=== PATIENT | female | born 1965 | race Caucasian/White ===

== ENCOUNTER 2020-05-29 05:59 | Inpatient (IN) ==
[2020-05-29] MEDS ORDERED: DEXTROSE 50% 25 GM/50 ML VIAL IV PRN (09:37)
[2020-05-29] MEDS ORDERED: GLUCAGON 1 MG VIAL IM PRN (09:37)
[2020-05-29] MEDS ORDERED: ONDANSETRON 4 MG/2 ML VIAL IV PRN (09:37)
[2020-05-29 10:44] LABS: Basophils % 0.2 % (0.0-0.8); Eosinophils % 0.2 % (0.00-10.9); Hematocrit 37.1 VOL% (35.7-47.0); Immature Granulocytes % 0.6 %; Lymphocytes # 1.6 10*3/uL (1.4-4.0); Mean Corpuscular HGB Conc 32.3 GM/DL (32-36); Mean Corpuscular Volume 85.9 FL (87-102); Mean Platelet Volume 9.7 FL (9.6-12.0); Monocytes % 5.6 % (1.7-12.7); Neutrophils % 83.4 % (38.7-73.9); Platelet Count 333 T/CUMM (130-400); Red Blood Count 4.32 MC/CUMM (3.8-5.5); Red Cell Distribution Width 14.6 % (9.3-17.3); White Blood Count 16.4 T/CUMM (4-12)
[2020-05-29 11:10] LABS: Alanine Aminotransferase 13 U/L (13-56); Albumin 2.9 G/DL (3.4-5.0); Alkaline Phosphatase 90 U/L (45-117); Aspartate Amino Transferase 7 U/L (0-37); Bilirubin,Total < 0.39 MG/DL (0.2-1.0); Blood Urea Nitrogen 62 MG/DL (7-18); Calcium 9.1 MG/DL (8.5-10.1); Estimated Glom Filtration Rate 29 ML/MIN; Glucose 119 MG/DL (74-106); Osmolality,Calculated 293.7 MOS/KG (273-304); Total Protein 7.2 G/DL (6.4-8.3)
[2020-05-29] MEDS: PANTOPRAZOLE 40 MG VIAL IV SCH (11:31)
[2020-05-29] MEDS: SODIUM CHLORIDE 0.9% 1,000 ML IV SCH ×2 (11:31→19:50)
[2020-05-29] MEDS ORDERED: METOPROLOL SUCCINATE XL 50 MG TABLET PO SCH (14:00)
[2020-05-29] MEDS ORDERED: LEVOTHYROXINE 150 MCG TABLET PO SCH (14:00)
[2020-05-29] MEDS ORDERED: amLODIPine 10 MG TABLET PO SCH (14:00)
[2020-05-29] MEDS: DULoxetine 30 MG CAPSULE PO SCH (14:45)
[2020-05-29] MEDS: LEVOTHYROXINE 200 MCG TABLET PO SCH (14:46)
[2020-05-29] MEDS: amLODIPine 5 MG TABLET PO SCH (14:47)
[2020-05-29] MEDS: GABAPENTIN 300 MG CAPSULE PO SCH ×2 (14:47→21:14)
[2020-05-29] MEDS: metroNIDAZOLE INJ 500 MG in PREMIX 1 EACH IV SCH ×2 (14:47→21:14)
[2020-05-29] MEDS: LEVOFLOXACIN INJ 500 MG in PREMIX 1 EACH IV SCH (16:18)
[2020-05-29 17:38] LABS: Apearance,Urine CLEAR (Clear); Bacteria,Urine Occasional /HPF (Few); Bilirubin,Urine Negative (Negative); Blood, Urine Moderate mg/dL (Negative); Glucose,Urine (UA) Negative (Negative); Ketones,Urine Negative (Negative); Mucus,Urine Occasional /LPF (Occasional); Nitrite,Urine Negative (Negative); Protein,Urine 100 MG/DL; RBC,Urine 4 /HPF (0-4); Squamous Epithelial Cell,Urine Occasional /HPF (0-10); Urine Color Straw (Yellow); Urine Specific Gravity 1.012 (1.001-1.035); Urine Urobilinogen < 2.0 EU/DL (0.2-1.0); WBC,Urine 1 /HPF (0-6)
[2020-05-29 17:39] LABS: Hematocrit 35.3 VOL% (35.7-47.0); Hemoglobin 11.4 GM/DL (12.0-16.0)
[2020-05-29] MEDS: METOPROLOL SUCCINATE XL 25 MG TABLET PO SCH (21:14)
[2020-05-30 01:15] LABS: Hematocrit 36.4 VOL% (35.7-47.0); Hemoglobin 11.6 GM/DL (12.0-16.0)
[2020-05-30] MEDS: metroNIDAZOLE INJ 500 MG in PREMIX 1 EACH IV SCH ×4 (03:14→21:11)
[2020-05-30 05:49] LABS: Basophils % 0.2 % (0.0-0.8); Eosinophils # 0.2 10*3/uL (0.0-0.87); Eosinophils % 1.2 % (0.00-10.9); Hematocrit 37.6 VOL% (35.7-47.0); Hemoglobin 11.9 GM/DL (12.0-16.0); Immature Granulocytes % 0.6 %; Immature Granulocytes Absolute 0.08 #; Lymphocytes # 1.3 10*3/uL (1.4-4.0); Lymphocytes % 10.2 % (21.3-54.2); Mean Corpuscular HGB Conc 31.6 GM/DL (32-36); Mean Corpuscular Volume 87.9 FL (87-102); Mean Platelet Volume 9.7 FL (9.6-12.0); Monocytes % 4.3 % (1.7-12.7); Neutrophils % 83.5 % (38.7-73.9); Platelet Count 300 T/CUMM (130-400); Red Blood Count 4.28 MC/CUMM (3.8-5.5); Red Cell Distribution Width 14.4 % (9.3-17.3); White Blood Count 13.1 T/CUMM (4-12)
[2020-05-30 06:23] LABS: Albumin 2.9 G/DL (3.4-5.0); Bilirubin,Total 0.6 MG/DL (0.2-1.0); Calcium 8.8 MG/DL (8.5-10.1); Osmolality,Calculated 287.7 MOS/KG (273-304); Risk Ratio 4.5; Total Protein 7.1 G/DL (6.4-8.3); VLDL CHOLESTEROL 23.8 MG/DL
[2020-05-30] MEDS: PANTOPRAZOLE 40 MG VIAL IV SCH (08:24)
[2020-05-30] MEDS: DULoxetine 30 MG CAPSULE PO SCH (08:25)
[2020-05-30] MEDS: amLODIPine 5 MG TABLET PO SCH (08:25)
[2020-05-30] MEDS: GABAPENTIN 300 MG CAPSULE PO SCH ×3 (08:25→21:10)
[2020-05-30] MEDS: LEVOTHYROXINE 200 MCG TABLET PO SCH (08:25)
[2020-05-30] MEDS: METOPROLOL SUCCINATE XL 25 MG TABLET PO SCH ×2 (08:26→21:10)
[2020-05-30] MEDS: SODIUM CHLORIDE 0.9% 1,000 ML IV SCH (15:13)
[2020-05-31] MEDS: SODIUM CHLORIDE 0.9% 1,000 ML IV SCH (01:33)
[2020-05-31] MEDS: metroNIDAZOLE INJ 500 MG in PREMIX 1 EACH IV SCH ×2 (02:43→11:41)
[2020-05-31 06:20] LABS: Basophils % 0.3 % (0.0-0.8); Eosinophils # 0.2 10*3/uL (0.0-0.87); Eosinophils % 1.3 % (0.00-10.9); Hematocrit 35.7 VOL% (35.7-47.0); Hemoglobin 11.2 GM/DL (12.0-16.0); Immature Granulocytes % 0.5 %; Immature Granulocytes Absolute 0.06 #; Lymphocytes # 1.8 10*3/uL (1.4-4.0); Lymphocytes % 14.9 % (21.3-54.2); Mean Corpuscular HGB Conc 31.4 GM/DL (32-36); Mean Platelet Volume 9.7 FL (9.6-12.0); Monocytes % 4.8 % (1.7-12.7); Neutrophils % 78.2 % (38.7-73.9); Platelet Count 269 T/CUMM (130-400); Red Blood Count 4.01 MC/CUMM (3.8-5.5); Red Cell Distribution Width 14.3 % (9.3-17.3)
[2020-05-31 06:39] LABS: Albumin 2.7 G/DL (3.4-5.0); Bilirubin,Total 1.1 MG/DL (0.2-1.0); Calcium 8.8 MG/DL (8.5-10.1); Osmolality,Calculated 288.3 MOS/KG (273-304); Total Protein 6.5 G/DL (6.4-8.3)
[2020-05-31] MEDS: LEVOTHYROXINE 200 MCG TABLET PO SCH (07:02)
[2020-05-31] MEDS ORDERED: PANTOPRAZOLE 40 MG TABLET PO SCH (09:00)
[2020-05-31] MEDS ORDERED: propofoL 200 MG/20 ML VIAL IV ONE (09:00)
[2020-05-31] MEDS ORDERED: LIDOCAINE 2% 5 ML VIAL ONE (09:00)
[2020-05-31] MEDS: DULoxetine 30 MG CAPSULE PO SCH (11:41)
[2020-05-31] MEDS: GABAPENTIN 300 MG CAPSULE PO SCH (11:42)
[2020-05-31] MEDS: amLODIPine 5 MG TABLET PO SCH (11:43)
[2020-05-31] MEDS: METOPROLOL SUCCINATE XL 25 MG TABLET PO SCH (11:43)
[2020-05-31] MEDS: LEVOFLOXACIN INJ 500 MG in PREMIX 1 EACH IV SCH (11:44)
[2020-05-31 14:04] VITALS: BP 134/78
== END 2020-05-31 13:40 | disposition home or self-care (01) | DRG 378 ==
LOC: N.5E → SUATTDRO 08:27
PROVIDERS: ADMIT Internal Medicine; ATTEND Internal Medicine

== ENCOUNTER 2021-03-08 19:25 | Observation (INO) ==
[2021-03-08] MEDS ORDERED: ONDANSETRON 4 MG/2 ML VIAL IV STA (20:00)
[2021-03-08 20:39] LABS: Basophils % 0.4 % (0.0-0.8); Eosinophils # 0.3 10*3/uL (0.0-0.87); Eosinophils % 3.5 % (0.00-10.9); Hemoglobin 12.7 GM/DL (12.0-16.0); Immature Granulocytes % 0.3 %; Immature Granulocytes Absolute 0.02 #; Lymphocytes # 1.2 10*3/uL (1.4-4.0); Lymphocytes % 14.7 % (21.3-54.2); Mean Corpuscular Volume 87.6 FL (87-102); Mean Platelet Volume 10.3 FL (9.6-12.0); Monocytes % 4.9 % (1.7-12.7); Neutrophils % 76.2 % (38.7-73.9); Platelet Count 280 T/CUMM (130-400); Red Blood Count 4.68 MC/CUMM (3.8-5.5)
[2021-03-08 20:56] LABS: Bilirubin,Urine Negative (Negative); Blood, Urine Small mg/dL (Negative); Glucose,Urine (UA) Negative (Negative); Ketones,Urine Negative (Negative); Mucus,Urine Occasional /LPF (Occasional); Nitrite,Urine Negative (Negative); Protein,Urine 100 MG/DL; RBC,Urine 1 /HPF (0-4); Squamous Epithelial Cell,Urine Occasional /HPF (0-10); Urine Appearance CLEAR (Clear); Urine Color Yellow (Yellow); Urine Specific Gravity 1.011 (1.001-1.035); Urine Urobilinogen < 2.0 EU/DL (0.2-1.0)
[2021-03-08 21:08] LABS: Alanine Aminotransferase 12 U/L (13-56); Albumin 3.5 G/DL (3.4-5.0); Alkaline Phosphatase 106 U/L (45-117); Aspartate Amino Transferase 12 U/L (0-37); Bilirubin,Total < 0.39 MG/DL (0.2-1.0); Blood Urea Nitrogen 20 MG/DL (7-18); Carbon Dioxide 26 MMOL/L (21-32); Estimated Glom Filtration Rate 29 ML/MIN; Glucose 133 MG/DL (74-106); Osmolality,Calculated 281.5 MOS/KG (273-304); Potassium 4.2 MMOL/L (3.5-5.1); Sodium 139 MMOL/L (136-145); Total Protein 7.3 G/DL (6.4-8.2)
[2021-03-08] MEDS ORDERED: ENOXAPARIN 30 MG/0.3 ML SYRINGE SUBCUT STA (21:29)
[2021-03-08] MEDS ORDERED: ENOXAPARIN 100 MG/ML SYRINGE SUBCUT ONE (21:38)
[2021-03-08] MEDS ORDERED: diphenhydrAMINE CAP 25 MG CAPSULE PO PRN (22:37)
[2021-03-08] MEDS ORDERED: GLUCAGON 1 MG VIAL IM PRN (22:37)
[2021-03-08] MEDS ORDERED: ZALEPLON 5 MG CAPSULE PO PRN (22:37)
[2021-03-08] MEDS ORDERED: DOCUSATE SODIUM 100 MG CAPSULE PO PRN (22:37)
[2021-03-08] MEDS ORDERED: ONDANSETRON 4 MG/2 ML VIAL IV PRN (22:37)
[2021-03-08] MEDS ORDERED: hydrALAZINE 20 MG/1 ML VIAL IV PRN (22:37)
[2021-03-08] MEDS ORDERED: guaiFENesin/DM ER 600-30 MG TABLET PO PRN (22:37)
[2021-03-08] MEDS ORDERED: MORPHINE 4 MG/1 ML VIAL IV PRN (22:37)
[2021-03-08] MEDS ORDERED: DEXTROSE 50% 25 GM/50 ML VIAL IV PRN (22:37)
[2021-03-08] MEDS ORDERED: ACETAMINOPHEN 325 MG TABLET PO PRN (22:37)
[2021-03-09] MEDS: ALBUTEROL/IPRATROPIUM 3 ML NEB RESP TX SCH ×3 (01:17→13:50)
[2021-03-09 06:03] LABS: Basophils % 0.3 % (0.0-0.8); Eosinophils # 0.2 10*3/uL (0.0-0.87); Eosinophils % 3.2 % (0.00-10.9); Hematocrit 39.1 VOL% (35.7-47.0); Immature Granulocytes % 0.4 %; Immature Granulocytes Absolute 0.03 #; Lymphocytes # 1.8 10*3/uL (1.4-4.0); Lymphocytes % 23.8 % (21.3-54.2); Mean Corpuscular HGB Conc 30.7 GM/DL (32-36); Mean Corpuscular Volume 88.3 FL (87-102); Mean Platelet Volume 10.4 FL (9.6-12.0); Monocytes % 6.3 % (1.7-12.7); Platelet Count 290 T/CUMM (130-400); Red Blood Count 4.43 MC/CUMM (3.8-5.5); Red Cell Distribution Width 15.9 % (9.3-17.3); White Blood Count 7.4 T/CUMM (4-12)
[2021-03-09 06:10] LABS: Calcium 9.5 MG/DL (8.5-10.1); Osmolality,Calculated 278.5 MOS/KG (273-304); Potassium 3.8 MMOL/L (3.5-5.1)
[2021-03-09] MEDS ORDERED: PANTOPRAZOLE 40 MG TABLET PO SCH (09:00)
[2021-03-09] MEDS: MECLIZINE 25 MG TABLET PO SCH ×2 (11:48→15:08)
[2021-03-09 12:23] VITALS: BP 140/84
== END 2021-03-09 15:45 | disposition home or self-care (01) ==
LOC: EDUNIT# → EDBD → N.EDINP 19:25 → N.ED 19:25 → SUATTDRO 22:37 → N.EDINP 03-09 00:20 → N.TELES 03-09 00:56
PROVIDERS: ADMIT Internal Medicine; ATTEND Internal Medicine Geriatric Medicine

== ENCOUNTER 2022-08-06 16:50 | Inpatient (IN) ==
[2022-08-06] MEDS ORDERED: ONDANSETRON 4 MG/2 ML VIAL IV STA (17:30)
[2022-08-06 18:00] LABS: Alanine Aminotransferase 9 U/L (13-56); Albumin 2.9 G/DL (3.4-5.0); Alkaline Phosphatase 88 U/L (45-117); Aspartate Amino Transferase 5 U/L (0-37); Bilirubin,Total < 0.39 MG/DL (0.20-1.00); Blood Urea Nitrogen 104 MG/DL (7-18); Calcium 8.5 MG/DL (8.5-10.1); Carbon Dioxide 19 MMOL/L (21-32); Chloride 112 MMOL/L (98-107); Glucose 89 MG/DL (74-106); Osmolality,Calculated 308.5 MOS/KG (273-304); Sodium 139 MMOL/L (136-145); Total Protein 7.3 G/DL (6.4-8.2)
[2022-08-06 18:04] LABS: Potassium 6.3 MMOL/L (3.5-5.1)
[2022-08-06 18:19] LABS: Basophils % 0.2 % (0.0-0.8); Eosinophils # 0.3 10*3/uL (0.0-0.87); Eosinophils % 2.8 % (0.00-10.9); Immature Granulocytes % 0.8 %; Lymphocytes # 1.2 10*3/uL (1.4-4.0); Lymphocytes % 9.9 % (21.3-54.2); Mean Corpuscular Volume 89.6 FL (87-102); Mean Platelet Volume 11.7 FL (9.6-12.0); Monocytes # 0.5 10*3/uL (0.11-0.8); Monocytes % 4.1 % (1.7-12.7); Neutrophils % 82.2 % (38.7-73.9); Platelet Count 228 T/CUMM (130-400); Red Blood Count 3.35 MC/CUMM (3.8-5.5); Red Cell Distribution Width 16.3 % (9.3-17.3); White Blood Count 11.9 T/CUMM (4-12)
[2022-08-06 18:31] LABS: Partial Thromboplastin Time 31.7 SECS (23.7-32.9)
[2022-08-06] MEDS ORDERED: ALBUTEROL 2.5 MG/3 ML NEB RESP TX PRN (18:37)
[2022-08-06] MEDS ORDERED: BUDESONIDE/FORMOTEROL 80-4.5 INHALER 6.9 GM INH PRN (18:40)
[2022-08-06] MEDS ORDERED: NIFEdipine 10 MG CAPSULE PO PRN (18:41)
[2022-08-06] MEDS ORDERED: hydrALAZINE 20 MG/1 ML VIAL IV ONE (19:39)
[2022-08-06] MEDS: SODIUM BICARB INJ 100 MEQ in STERILE WATER INJ 1,000 ML IV SCH (20:01)
[2022-08-06] MEDS: ENOXAPARIN 30 MG/0.3 ML SYRINGE SUBCUT SCH (20:17)
[2022-08-06] MEDS ORDERED: MORPHINE 2 MG/1 ML SYRINGE IV PRN (20:53)
[2022-08-06] MEDS ORDERED: MORPHINE 2 MG/1 ML SYRINGE IV ONE (21:15)
[2022-08-07 05:55] LABS: Basophils % 0.2 % (0.0-0.8); Eosinophils # 0.2 10*3/uL (0.0-0.87); Eosinophils % 2.6 % (0.00-10.9); Hematocrit 27.6 VOL% (35.7-47.0); Hemoglobin 8.4 GM/DL (12.0-16.0); Immature Granulocytes % 0.3 %; Immature Granulocytes Absolute 0.03 #; Lymphocytes # 2.3 10*3/uL (1.4-4.0); Lymphocytes % 25.7 % (21.3-54.2); Mean Corpuscular HGB Conc 30.4 GM/DL (32-36); Mean Corpuscular Volume 88.5 FL (87-102); Mean Platelet Volume 11.6 FL (9.6-12.0); Monocytes # 0.5 10*3/uL (0.11-0.8); Monocytes % 6.2 % (1.7-12.7); Platelet Count 198 T/CUMM (130-400); Red Blood Count 3.12 MC/CUMM (3.8-5.5); Red Cell Distribution Width 16.4 % (9.3-17.3); White Blood Count 8.8 T/CUMM (4-12)
[2022-08-07] MEDS: LEVOTHYROXINE 200 MCG TABLET PO SCH (06:05)
[2022-08-07 06:14] LABS: Calcium 8.1 MG/DL (8.5-10.1); Osmolality,Calculated 308.5 MOS/KG (273-304)
[2022-08-07 06:16] LABS: Potassium 6.1 MMOL/L (3.5-5.1)
[2022-08-07] MEDS: SODIUM BICARB INJ 100 MEQ in STERILE WATER INJ 1,000 ML IV SCH ×3 (07:04→19:07)
[2022-08-07] MEDS: METOPROLOL SUCCINATE XL 25 MG TABLET PO SCH (18:55)
[2022-08-07] MEDS: PANTOPRAZOLE 40 MG TABLET PO SCH (18:55)
[2022-08-07] MEDS: ENOXAPARIN 30 MG/0.3 ML SYRINGE SUBCUT SCH (20:30)
[2022-08-08 05:40] LABS: Osmolality,Calculated 294.5 MOS/KG (273-304)
[2022-08-08 05:44] LABS: Potassium 6.2 MMOL/L (3.5-5.1)
[2022-08-08] MEDS ORDERED: PROMETHAZINE 25 MG/1 ML VIAL IM ONE (05:45)
[2022-08-08] MEDS: SODIUM BICARB INJ 100 MEQ in STERILE WATER INJ 1,000 ML IV SCH (05:51)
[2022-08-08] MEDS: LEVOTHYROXINE 200 MCG TABLET PO SCH ×2 (06:18→08:20)
[2022-08-08] MEDS: PANTOPRAZOLE 40 MG TABLET PO SCH (08:20)
[2022-08-08] MEDS: METOPROLOL SUCCINATE XL 25 MG TABLET PO SCH (08:20)
[2022-08-08 09:01] LABS: Amorphous Crystals,Urine Occasional /HPF (Few); Bacteria,Urine Many /HPF (Few); RBC,Urine 127 /HPF (0-4); Squamous Epithelial Cell,Urine Occasional /HPF (0-10); Urine Appearance Cloudy (Clear)
[2022-08-08 09:02] LABS: Glucose,Urine (UA) Negative (Negative); Ketones,Urine Negative (Negative); Nitrite,Urine Negative (Negative); Protein,Urine >=300 mg/dL (Negative); Urine Color LT. BROWN (Yellow)
[2022-08-08 09:03] LABS: Bilirubin,Urine Negative (Negative); Blood, Urine Large mg/dL (Negative); Urine Urobilinogen 0.2 eU/dL (<2.0)
[2022-08-08 09:48] LABS: Hepatitis B Core IgM Quant 0.06 Index; Hepatitis B Surface Ag Quant < 0.10 Index; Hepatitis B Surface Ag Result Non-Reactive (NonReactive); Hepatitis C Virus Ab Quant 0.02 Index; Hepatitis C Virus Ab Result Non-Reactive (NonReactive)
[2022-08-08] MEDS ORDERED: TISSUE ADHESIVE 1 EACH APPLICATOR TOP ONE (09:57)
[2022-08-08] MEDS ORDERED: HEPARIN 5,000 UNIT/1 ML VIAL ONE (09:57)
[2022-08-08] MEDS ORDERED: BUPIVACAINE MPF 0.25% 10 ML VIAL ONE (10:00)
[2022-08-08] MEDS ORDERED: propofoL 200 MG/20 ML VIAL IV ONE ×2 (10:43→10:44)
[2022-08-08] MEDS ORDERED: fentaNYL 100 MCG/2 ML VIAL ONE (10:43)
[2022-08-08] MEDS ORDERED: MIDAZOLAM 2 MG/2 ML VIAL ONE (10:43)
[2022-08-08] MEDS ORDERED: LIDOCAINE 2% 5 ML VIAL ONE (10:43)
[2022-08-08] MEDS ORDERED: SODIUM CHLORIDE 0.9% 100 ML IV ONE (11:13)
[2022-08-08] MEDS ORDERED: PHENYLEPHRINE 1 MG/10 ML SYRINGE IV ONE (11:24)
[2022-08-08] MEDS ORDERED: SODIUM CHLORIDE 0.9% 250 ML IV ONE (11:24)
[2022-08-08] MEDS: ONDANSETRON 4 MG/2 ML VIAL IV PRN (16:00)
[2022-08-08] MEDS: levETIRAcetam 500 MG TABLET PO SCH ×2 (17:31→21:03)
[2022-08-09] MEDS: LEVOTHYROXINE 200 MCG TABLET PO SCH (06:03)
[2022-08-09 06:09] LABS: Osmolality,Calculated 286.8 MOS/KG (273-304)
[2022-08-09] MEDS: PANTOPRAZOLE 40 MG TABLET PO SCH (08:47)
[2022-08-09] MEDS: METOPROLOL SUCCINATE XL 25 MG TABLET PO SCH (08:47)
[2022-08-09] MEDS: levETIRAcetam 500 MG TABLET PO SCH ×2 (08:47→21:35)
[2022-08-09] MEDS ORDERED: allopurinoL 300 MG TABLET PO SCH (18:48)
[2022-08-09] MEDS: ENOXAPARIN 30 MG/0.3 ML SYRINGE SUBCUT SCH (21:34)
[2022-08-09] MEDS: allopurinoL 300 MG TABLET PO SCH (21:35)
[2022-08-10 05:17] LABS: Calcium 8.3 MG/DL (8.5-10.1); Osmolality,Calculated 286.1 MOS/KG (273-304); Potassium 5.2 MMOL/L (3.5-5.1)
[2022-08-10] MEDS: LEVOTHYROXINE 200 MCG TABLET PO SCH (05:52)
[2022-08-10] MEDS: METOPROLOL SUCCINATE XL 25 MG TABLET PO SCH (08:15)
[2022-08-10] MEDS: levETIRAcetam 500 MG TABLET PO SCH ×2 (08:15→20:49)
[2022-08-10] MEDS: PANTOPRAZOLE 40 MG TABLET PO SCH (08:15)
[2022-08-10] MEDS: cefTRIAXone 1,000 MG in SODIUM CHLORIDE 0.9% 100 ML IV SCH (14:20)
[2022-08-10] MEDS: SEVELAMER CARBONATE 800 MG TABLET PO SCH (17:51)
[2022-08-10] MEDS: ENOXAPARIN 30 MG/0.3 ML SYRINGE SUBCUT SCH (20:49)
[2022-08-10] MEDS: allopurinoL 300 MG TABLET PO SCH (20:49)
[2022-08-10] MEDS: ONDANSETRON 4 MG/2 ML VIAL IV PRN (23:09)
[2022-08-11 04:24] LABS: Basophils % 0.1 % (0.0-0.8); Eosinophils # 0.3 10*3/uL (0.0-0.87); Eosinophils % 3.9 % (0.00-10.9); Hematocrit 24.8 VOL% (35.7-47.0); Hemoglobin 7.6 GM/DL (12.0-16.0); Lymphocytes # 1.1 10*3/uL (1.4-4.0); Lymphocytes % 14.2 % (21.3-54.2); Mean Corpuscular HGB Conc 30.6 GM/DL (32-36); Mean Platelet Volume 11.4 FL (9.6-12.0); Monocytes # 0.7 10*3/uL (0.11-0.8); Monocytes % 8.8 % (1.7-12.7); Neutrophils % 72.5 % (38.7-73.9); Platelet Count 166 T/CUMM (130-400); Red Blood Count 2.85 MC/CUMM (3.8-5.5); White Blood Count 7.5 T/CUMM (4-12)
[2022-08-11 04:48] LABS: Osmolality,Calculated 285.7 MOS/KG (273-304); Potassium 4.1 MMOL/L (3.5-5.1)
[2022-08-11 04:59] LABS: Alanine Aminotransferase < 6 U/L (13-56); Albumin 2.3 G/DL (3.4-5.0); Alkaline Phosphatase 69 U/L (45-117); Aspartate Amino Transferase 7 U/L (0-37); Bilirubin,Total < 0.39 MG/DL (0.20-1.00); Blood Urea Nitrogen 43 MG/DL (7-18); Calcium 8.1 MG/DL (8.5-10.1); Carbon Dioxide 27 MMOL/L (21-32); Chloride 104 MMOL/L (98-107); Glucose 90 MG/DL (74-106); Osmolality,Calculated 287.5 MOS/KG (273-304); Potassium 4.1 MMOL/L (3.5-5.1); Sodium 139 MMOL/L (136-145); Total Protein 6.2 G/DL (6.4-8.2)
[2022-08-11] MEDS: LEVOTHYROXINE 200 MCG TABLET PO SCH (06:04)
[2022-08-11] MEDS: PANTOPRAZOLE 40 MG TABLET PO SCH (08:11)
[2022-08-11] MEDS: levETIRAcetam 500 MG TABLET PO SCH ×2 (08:11→21:02)
[2022-08-11] MEDS: METOPROLOL SUCCINATE XL 25 MG TABLET PO SCH (08:11)
[2022-08-11] MEDS: SEVELAMER CARBONATE 800 MG TABLET PO SCH ×3 (08:11→16:52)
[2022-08-11] MEDS ORDERED: HEPARIN 10,000 UNIT/10 ML VIAL IV PRN (11:32)
[2022-08-11] MEDS: cefTRIAXone 1,000 MG in SODIUM CHLORIDE 0.9% 100 ML IV SCH (13:47)
[2022-08-11] MEDS: POLYETHYLENE GLYCOL POWDER 17 GM PACK PO SCH (16:52)
[2022-08-11] MEDS: ENOXAPARIN 30 MG/0.3 ML SYRINGE SUBCUT SCH (21:02)
[2022-08-11] MEDS: allopurinoL 300 MG TABLET PO SCH (21:02)
[2022-08-12] MEDS: LEVOTHYROXINE 200 MCG TABLET PO SCH (05:33)
[2022-08-12 06:25] LABS: Basophils % 0.2 % (0.0-0.8); Eosinophils # 0.2 10*3/uL (0.0-0.87); Eosinophils % 2.6 % (0.00-10.9); Hematocrit 25.1 VOL% (35.7-47.0); Hemoglobin 7.8 GM/DL (12.0-16.0); Immature Granulocytes % 0.5 %; Immature Granulocytes Absolute 0.04 #; Lymphocytes # 1.6 10*3/uL (1.4-4.0); Lymphocytes % 19.5 % (21.3-54.2); Mean Corpuscular HGB Conc 31.1 GM/DL (32-36); Mean Corpuscular Volume 87.2 FL (87-102); Mean Platelet Volume 11.4 FL (9.6-12.0); Monocytes # 0.7 10*3/uL (0.11-0.8); Monocytes % 8.9 % (1.7-12.7); Neutrophils % 68.3 % (38.7-73.9); Platelet Count 168 T/CUMM (130-400); Red Blood Count 2.88 MC/CUMM (3.8-5.5); Red Cell Distribution Width 14.9 % (9.3-17.3); White Blood Count 8.2 T/CUMM (4-12)
[2022-08-12 06:52] LABS: Calcium 8.5 MG/DL (8.5-10.1); Osmolality,Calculated 275.8 MOS/KG (273-304); Potassium 3.9 MMOL/L (3.5-5.1)
[2022-08-12 07:09] LABS: % Iron Saturation 12.2 % (18-50); Alanine Aminotransferase < 6 U/L (13-56); Albumin 2.3 G/DL (3.4-5.0); Alkaline Phosphatase 69 U/L (45-117); Aspartate Amino Transferase 7 U/L (0-37); Blood Urea Nitrogen 25 MG/DL (7-18); Calcium 8.3 MG/DL (8.5-10.1); Carbon Dioxide 27 MMOL/L (21-32); Chloride 104 MMOL/L (98-107); Ferritin 106.2 ng/mL (8-252); Glucose 83 MG/DL (74-106); Iron 21 UG/DL (50-170); Iron Binding Capacity 172 UG/DL (250-450); Osmolality,Calculated 279.5 MOS/KG (273-304); Sodium 139 MMOL/L (136-145); Total Protein 6.4 G/DL (6.4-8.2)
[2022-08-12 07:58] LABS: Folate 6.03 NG/ML (5.38-24.0)
[2022-08-12] MEDS: SEVELAMER CARBONATE 800 MG TABLET PO SCH ×3 (10:41→17:25)
[2022-08-12] MEDS: PANTOPRAZOLE 40 MG TABLET PO SCH (10:41)
[2022-08-12] MEDS: levETIRAcetam 500 MG TABLET PO SCH ×2 (10:41→21:09)
[2022-08-12] MEDS: POLYETHYLENE GLYCOL POWDER 17 GM PACK PO SCH (10:42)
[2022-08-12] MEDS: METOPROLOL SUCCINATE XL 25 MG TABLET PO SCH (10:42)
[2022-08-12] MEDS: cefTRIAXone 1,000 MG in SODIUM CHLORIDE 0.9% 100 ML IV SCH (13:07)
[2022-08-12] MEDS: FERROUS SULFATE 325 MG TABLET PO SCH (21:09)
[2022-08-12] MEDS: ENOXAPARIN 30 MG/0.3 ML SYRINGE SUBCUT SCH (21:09)
[2022-08-12] MEDS: allopurinoL 300 MG TABLET PO SCH (21:09)
[2022-08-13] MEDS: LEVOTHYROXINE 200 MCG TABLET PO SCH (05:40)
[2022-08-13] MEDS: METOPROLOL SUCCINATE XL 25 MG TABLET PO SCH (09:17)
[2022-08-13] MEDS: FERROUS SULFATE 325 MG TABLET PO SCH ×2 (09:17→20:51)
[2022-08-13] MEDS: PANTOPRAZOLE 40 MG TABLET PO SCH (09:17)
[2022-08-13] MEDS: SEVELAMER CARBONATE 800 MG TABLET PO SCH ×3 (09:17→17:38)
[2022-08-13] MEDS: POLYETHYLENE GLYCOL POWDER 17 GM PACK PO SCH (09:18)
[2022-08-13] MEDS: cefTRIAXone 1,000 MG in SODIUM CHLORIDE 0.9% 100 ML IV SCH (14:05)
[2022-08-13] MEDS: allopurinoL 300 MG TABLET PO SCH (20:51)
[2022-08-13] MEDS: ENOXAPARIN 30 MG/0.3 ML SYRINGE SUBCUT SCH (20:52)
[2022-08-14] MEDS: LEVOTHYROXINE 200 MCG TABLET PO SCH (05:46)
[2022-08-14] MEDS ORDERED: FERRIC GLUCONATE COMPLEX 125 MG in SODIUM CHLORIDE 0.9% 100 ML IV ONE (07:51)
[2022-08-14] MEDS: FERROUS SULFATE 325 MG TABLET PO SCH (08:42)
[2022-08-14] MEDS: POLYETHYLENE GLYCOL POWDER 17 GM PACK PO SCH (08:42)
[2022-08-14] MEDS: SEVELAMER CARBONATE 800 MG TABLET PO SCH ×2 (08:42→13:32)
[2022-08-14] MEDS: PANTOPRAZOLE 40 MG TABLET PO SCH (08:42)
[2022-08-14 09:06] VITALS: BP 177/88
[2022-08-14 10:29] LABS: Basophils % 0.2 % (0.0-0.8); Eosinophils # 0.5 10*3/uL (0.0-0.87); Eosinophils % 3.7 % (0.00-10.9); Hematocrit 26.9 VOL% (35.7-47.0); Hemoglobin 8.5 GM/DL (12.0-16.0); Immature Granulocytes % 0.6 %; Immature Granulocytes Absolute 0.07 #; Lymphocytes # 0.9 10*3/uL (1.4-4.0); Lymphocytes % 7.3 % (21.3-54.2); Mean Corpuscular HGB Conc 31.6 GM/DL (32-36); Mean Corpuscular Volume 86.5 FL (87-102); Mean Platelet Volume 10.3 FL (9.6-12.0); Monocytes # 0.8 10*3/uL (0.11-0.8); Monocytes % 6.2 % (1.7-12.7); Platelet Count 170 T/CUMM (130-400); Red Blood Count 3.11 MC/CUMM (3.8-5.5); Red Cell Distribution Width 14.7 % (9.3-17.3); White Blood Count 12.6 T/CUMM (4-12)
[2022-08-14 10:54] LABS: Alanine Aminotransferase 12 U/L (13-56); Albumin 2.7 G/DL (3.4-5.0); Alkaline Phosphatase 82 U/L (45-117); Aspartate Amino Transferase 15 U/L (0-37); Bilirubin,Total < 0.39 MG/DL (0.20-1.00); Blood Urea Nitrogen 32 MG/DL (7-18); Calcium 8.4 MG/DL (8.5-10.1); Carbon Dioxide 29 MMOL/L (21-32); Chloride 100 MMOL/L (98-107); Glucose 115 MG/DL (74-106); Osmolality,Calculated 277.1 MOS/KG (273-304); Potassium 3.6 MMOL/L (3.5-5.1); Sodium 135 MMOL/L (136-145); Total Protein 7.3 G/DL (6.4-8.2)
[2022-08-14] MEDS: METOPROLOL SUCCINATE XL 25 MG TABLET PO SCH (13:27)
[2022-08-14] MEDS: cefTRIAXone 1,000 MG in SODIUM CHLORIDE 0.9% 100 ML IV SCH (14:40)
== END 2022-08-14 15:56 | disposition home health service (06) | DRG 674 ==
LOC: N.ED 16:50 → N.ICU 18:35 → SUATTDRO 18:35 → N.ICU 19:30 → N.5E 08-11 12:01
PROVIDERS: ADMIT Internal Medicine; ATTEND Family Medicine